=== PATIENT | female | born 1930 | race Caucasian/White ===

== ENCOUNTER → 2019-06-28 | Outpatient (CLI) | payer MEDICARE, OTHER ==
[~2019-06-28] MED LIST: AZITHROMYCIN 2250 MG PO; CEFTIN 250 MG250 MG PO; LEVOTHYROXIN0.025 MG PO; LO-DOSE ASPIRIN81 M1 PO; ONDANSETRON HCL4 M2 PO
== END ==
LOC: M.WC 05:13
DX: S81.811D Laceration without foreign body, right lower leg, subsequent encounter (principal); E03.9 Hypothyroidism, unspecified; I73.9 Peripheral vascular disease, unspecified; I42.9 Cardiomyopathy, unspecified; I48.91 Unspecified atrial fibrillation; I25.2 Old myocardial infarction; I50.9 Heart failure, unspecified; M19.90 Unspecified osteoarthritis, unspecified site; V49.60XD Unspecified car occupant injured in collision with unspecified motor vehicles in traffic accident, subsequent encounter

== ENCOUNTER → 2019-07-05 | Outpatient (CLI) | payer MEDICARE, OTHER | LOC: M.WC 05:10 | DX: S81.811D Laceration without foreign body, right lower leg, subsequent encounter (principal); I73.9 Peripheral vascular disease, unspecified; I42.9 Cardiomyopathy, unspecified; I48.91 Unspecified atrial fibrillation; I25.2 Old myocardial infarction; I50.9 Heart failure, unspecified; E03.9 Hypothyroidism, unspecified; M19.90 Unspecified osteoarthritis, unspecified site; X58.XXXD Exposure to other specified factors, subsequent encounter ==